=== PATIENT | male | born 1940 | race Caucasian/White ===

== ENCOUNTER 2017-04-20 12:33 | Day surgery (SDC) | payer MEDICARE ==
[~2017-04-20] VITALS: Ht 182.9 cm; Wt 126.0 kg
[2017-04-20] MEDS ORDERED: LIDOCAINE 1%, 2ML SQ PRN (13:00)
[2017-04-20] MEDS ORDERED: LACTATED RINGERS 1,000 ML IV SCH (13:00)
[2017-04-20] MEDS ORDERED: LIDOCAINE 1%, 2ML ONE (13:10)
[2017-04-20] MEDS ORDERED: CYAN100014 PO (13:19)
[2017-04-20] MEDS ORDERED: TERA2CAP3 PO (13:19)
[2017-04-20] MEDS ORDERED: CHOL100015 PO (13:19)
[2017-04-20] MEDS ORDERED: DAPS25TA PO (13:19)
[2017-04-20] MEDS ORDERED: MULT-6 PO (13:19)
[2017-04-20 13:21] VITALS: BP 166/107
[2017-04-20 13:29] LABS: HEMATOCRIT 40.3 % (39.2-51.8); HEMOGLOBIN 13.6 g/dL (13.7-18.0); WHITE BLOOD COUNT 5.9 x10^3/uL (3.4-10)
[2017-04-20 13:42] LABS: BLOOD UREA NITROGEN 9 mg/dL (7-18)
[2017-04-20 13:46] LABS: CARCINOEMBRYONIC ANTIGEN 1.85 ng/mL (0.0-3.00)
[2017-04-20] MEDS ORDERED: PROPOFOL 10 MG/ML, 20ML ONE (15:08)
[2017-04-20] MEDS ORDERED: SIMETHICONE DROPS 40 MG/0.6 ML BOTTLE ONE (15:20)
[2017-04-20] MEDS ORDERED: FENTANYL PF 100 MCG/2ML ONE (15:24)
[2017-04-20] MEDS ORDERED: PROMETHAZINE 25 MG/ML, 1ML IV PRN (16:00)
[2017-04-20] MEDS ORDERED: ONDANSETRON 2MG/ML, 2ML IVPush PRN (16:00)
[2017-04-20] MEDS ORDERED: OXYcodone 5 MG/5 ML ORAL.SOL UDC PO PRN (16:00)
[2017-04-20] MEDS ORDERED: hydrALAzine 20 MG/ML, 1ML IV PRN (16:00)
[2017-04-20] MEDS ORDERED: MIDAZOLAM 1 MG/ML, 2ML IV PRN (16:00)
[2017-04-20] MEDS ORDERED: LABETALOL 5MG/ML, 20ML IV PRN (16:00)
[2017-04-20] MEDS ORDERED: FENTANYL PF 100 MCG/2ML IV PRN (16:00)
[2017-04-20] MEDS ORDERED: HYDROmorphone 1 MG/ML, 1ML IV PRN (16:00)
== END 2017-04-20 17:30 | disposition home or self-care (01) ==
LOC: OUT 12:33
PROVIDERS: ATTEND Internal Medicine Gastroenterology
DX: C20 Malignant neoplasm of rectum (principal); K64.1 Second degree hemorrhoids; N40.0 Benign prostatic hyperplasia without lower urinary tract symptoms; I10 Essential (primary) hypertension; Z86.010 Personal history of colon polyps; Z87.442 Personal history of urinary calculi; E66.01 Morbid (severe) obesity due to excess calories; Z68.37 Body mass index [BMI] 37.0-37.9, adult; Z87.39 Personal history of other diseases of the musculoskeletal system and connective tissue; Z98.890 Other specified postprocedural states
CPT/HCPCS: 36415; 45341; 80048; 82378; 85025; 86803; 87340; 93005; J2704; J3010; J3490; J7120

== ENCOUNTER → 2017-05-01 | Outpatient (CLI) | payer MEDICARE ==
[~2017-05-01] MED LIST: CHOL100015 PO; CYAN100014 PO; DAPS25TA PO; MULT-6 PO; TERA2CAP3 PO
== END | disposition home or self-care (01) ==
LOC: ROC 12:19
PROVIDERS: ATTEND Radiology Radiation Oncology
DX: C20 Malignant neoplasm of rectum (principal); I10 Essential (primary) hypertension; M19.90 Unspecified osteoarthritis, unspecified site
CPT/HCPCS: G0463

== ENCOUNTER → 2017-07-06 | Outpatient (CLI) | payer MEDICARE | END | disposition home or self-care (01) | LOC: ROC 08:36 | PROVIDERS: ATTEND Radiology Radiation Oncology | DX: C20 Malignant neoplasm of rectum (principal); Z92.3 Personal history of irradiation | CPT/HCPCS: 99212; G0463 ==

== ENCOUNTER → 2017-09-04 | Outpatient (CLI) | payer MEDICARE | END | disposition home or self-care (01) | LOC: ROC 12:53 | PROVIDERS: ATTEND Radiology Radiation Oncology | DX: C20 Malignant neoplasm of rectum (principal) | CPT/HCPCS: 99212; G0463 ==

== ENCOUNTER → 2017-10-24 | Outpatient (CLI) | payer MEDICARE ==
[~2017-10-24] MED LIST changes: +OMNIPAQUE 350 MG/ML, 100ML BOTTLE ONE
== END | disposition home or self-care (01) ==
LOC: CFH 08:51
PROVIDERS: ATTEND Internal Medicine Hematology & Oncology
DX: N40.0 Benign prostatic hyperplasia without lower urinary tract symptoms (principal); K42.9 Umbilical hernia without obstruction or gangrene; Z85.048 Personal history of other malignant neoplasm of rectum, rectosigmoid junction, and anus
CPT/HCPCS: 36415; 74177; 84153; Q9967